=== PATIENT | male | born 1990 | race Caucasian/White ===

== ENCOUNTER 2019-04-23 08:30 | Emergency (ER) | payer OTHER, SELFPAY ==
[2019-04-23 08:43] VITALS: BP 137/81; PULSE 85; RESP 18; TEMP 36.8; O2SAT 99
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
--- NOTE | 2019-04-23 09:13 | PC.NURSE ---
Patient had no open areas on skin and was dc'd by MD after exam. No blood drawn
== END 2019-04-23 08:45 | disposition home or self-care (01) ==
PROVIDERS: Emergency Provider Emergency Medicine
DX: Z77.21 Contact with and (suspected) exposure to potentially hazardous body fluids (principal); Y99.0 Civilian activity done for income or pay
CPT/HCPCS: 99282

== ENCOUNTER 2019-05-21 12:11 | Emergency (ER) | payer OTHER, SELFPAY ==
[2019-05-21 12:24] VITALS: BP 135/80; PULSE 79; RESP 18; TEMP 36.9; O2SAT 98
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
[2019-05-21 13:07] VITALS: PULSE 70
[2019-05-21 14:22] LABS: Alanine Aminotransferase 55 IU/L (21-72)
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
[2019-05-21 17:07] LABS: Hepatitis B Surface Antigen NEGATIVE s/c (NEGATIVE)
[2019-05-21 17:28] LABS: HIV 1 & 2 Ab/Ag 4th Gen Combo NEGATIVE (NEGATIVE); Hep C Virus Ab w/Reflex Quant NEGATIVE s/c (NEGATIVE)
[2019-05-24 16:49] LABS: Hepatitis B Surf Ab Qualitativ Reactive (Nonreactive)
== END 2019-05-21 14:44 | disposition home or self-care (01) ==
PROVIDERS: Emergency Provider Nurse Practitioner Family
DX: Z77.21 Contact with and (suspected) exposure to potentially hazardous body fluids (principal); S60.032A Contusion of left middle finger without damage to nail, initial encounter; Y99.0 Civilian activity done for income or pay
CPT/HCPCS: 36415; 73140; 84460; 86706; 86803; 87340; 87389; 99282; 99284